=== PATIENT | female | born 1990 | race Two or more races ===

== ENCOUNTER 2022-08-18 11:44 | Emergency (ER) | payer SELFPAY ==
[~2022-08-18] VITALS: Ht 152.4 cm; Wt 72.0 kg
[2022-08-18 11:49] VITALS: BP 131/75
[2022-08-18] MEDS ORDERED: CETI5TAB6 PO (12:53)
[2022-08-18] MEDS ORDERED: AZEL0.054 EACHEYE (12:58)
[2022-08-18] MEDS ORDERED: ACETAMINOPHEN 500 MG TAB PO ONE (13:00)
[2022-08-18] MEDS ORDERED: diphenhdrAMINE HCL 25 MG CAP PO ONE (13:00)
== END 2022-08-18 13:08 | disposition home or self-care (01) ==
LOC: ER 11:44 → EDBD 11:44 → ER 13:07
DX: H10.13 Acute atopic conjunctivitis, bilateral (principal)
CPT/HCPCS: 99283; J7030